=== PATIENT | female | born 1995 | race Caucasian/White ===

== ENCOUNTER 2022-10-11 06:32 | Day surgery (SDC) | payer OTHER ==
[2022-10-07 17:05] LABS: HCG,QUAL RESULT NEGATIVE (NEGATIVE)
[~2022-10-11] VITALS: Ht 165.1 cm; Wt 86.2 kg
[~2022-10-11 06:32] MED LIST: ACETAMINOPHEN I.V. 1000 MG /100 ML IVPB PREMIX IV ONE; BACITRACIN ZINC 15 GM TOPICAL OINTMENT TP ONE; BUPIVACAINE /EPINEPHRINE/PF 0.5% 30 ML VIAL INJ ONE; DESFLURANE 15 MIN GAS INH ONE; DEXAMETHASONE SOD PHOSPHATE 4 MG/ML VIAL ONE; LIDOCAINE 2%, 20 ML MDV ONE; MIDAZOLAM HCL 5 MG/ML VIAL (VERSED) IV ONE; NS IRRIG SOLN 1000 ML IR ONE; ONDANSETRON HCL 4 MG/2 ML VIAL ONE; PROPOFOL 200MG/ 20ML VIAL (DIPRIVAN) IV ONE; ROCURONIUM BROMIDE 10 MG/ML (ZEMURON) ONE; SUGAMMADEX SODIUM 200 MG/2 ML VIAL IV ONE; fentaNYL CITRATE 250 MCG/5 ML AMP ONE
[2022-10-11 07:01] LABS: HCG,QUAL RESULT NEGATIVE (NEGATIVE)
[2022-10-11] MEDS ORDERED: MEPERIDINE HCL/PF 25 MG/ML DISP.SYRIN IVP PRN (11:15)
[2022-10-11] MEDS ORDERED: MIDAZOLAM HCL 2 MG/2 ML VIAL (VERSED) IVP PRN (11:15)
[2022-10-11] MEDS ORDERED: LR 1,000 ML IV SCH (11:15)
[2022-10-11] MEDS ORDERED: HYDROmorphone 1 MG/ML INJ. CARTRIDGE IVP PRN ×2 (11:15)
[2022-10-11] MEDS ORDERED: METOCLOPRAMIDE HCL 10 MG/2 ML VIAL IVP PRN (11:15)
[2022-10-11] MEDS ORDERED: ACETAMINOPHEN I.V. 1000 MG 100 ML IV ONE (11:18)
[2022-10-11 14:59] VITALS: BP_SYST 121
== END 2022-10-11 14:01 | disposition home or self-care (01) ==
LOC: SDS 06:32 → SMU 06:34 → SDS 14:01
PROVIDERS: ATTEND Otolaryngology
DX: J35.01 Chronic tonsillitis (principal); N92.0 Excessive and frequent menstruation with regular cycle; R13.10 Dysphagia, unspecified; E66.3 Overweight; Z20.822 Contact with and (suspected) exposure to COVID-19; Z68.31 Body mass index [BMI] 31.0-31.9, adult; Z79.899 Other long term (current) drug therapy
CPT/HCPCS: 84703 ×2; 87081; 36415 ×2; 42826; 88304; 87426; U0003; J3490 ×2; J1100; J2001; J2250; J2405; J2704; J3010; J0131 ×2